=== PATIENT | female | born 1945 | race Caucasian/White ===

== ENCOUNTER 2022-05-31 05:40 | Day surgery (SDC) | payer OTHER ==
[~2022-05-31] VITALS: Ht 154.9 cm; Wt 56.7 kg
[2022-05-31] MEDS ORDERED: MACROBID 100 M100 MG PO (10:22)
[2022-05-31] MEDS ORDERED: ULTRACET PO (10:22)
== END 2022-05-31 13:40 | disposition home or self-care (01) ==
LOC: CIR.AMB 05:40
PROVIDERS: ATTEND Obstetrics & Gynecology Gynecology
DX: N81.11 Cystocele, midline (principal); N81.6 Rectocele; Z88.8 Allergy status to other drugs, medicaments and biological substances; E07.9 Disorder of thyroid, unspecified

== ENCOUNTER 2024-01-30 05:15 | Day surgery (SDC) | payer OTHER ==
[~2024-01-30 05:15] MED LIST: MACROBID 100 M100 MG PO; ULTRACET PO
[2024-01-30] MEDS ORDERED: CHLORHEXIDINE GLUCONATE 120 ML BOTTLE TOP ONE (09:15)
[2024-01-30] MEDS ORDERED: LIDOCAINE HCL 1% 20ML VIAL IJ ONE (09:15)
[2024-01-30] MEDS ORDERED: CEFAZOLIN SODIUM 1,000 MG VIAL IV SCH (09:15)
[2024-01-30] MEDS ORDERED: VANCOMYCIN HCL 1,000 MG VIAL IR ONE (09:15)
[2024-01-30] MEDS ORDERED: MACROBID 100 M100 MG PO (10:28)
[2024-01-30] MEDS ORDERED: TRAM1TAB98 PO (10:28)
== END 2024-01-30 16:10 | disposition home or self-care (01) ==
LOC: CIR.AMB 05:15
PROVIDERS: ATTEND Obstetrics & Gynecology Gynecology
DX: N80.03 Adenomyosis of the uterus (principal); N81.3 Complete uterovaginal prolapse; N81.82 Incompetence or weakening of pubocervical tissue; J45.909 Unspecified asthma, uncomplicated; G43.909 Migraine, unspecified, not intractable, without status migrainosus